=== PATIENT | female | born 1995 | race Caucasian/White ===

== ENCOUNTER 2019-07-29 09:45 | Emergency (ER) | payer BC ==
[2019-07-29 10:03] VITALS: BP 107/68
--- NOTE | 2019-07-29 10:17 | UC ---
Complaint Female HPI - HPI Summary HPI Summary: 23 y/o female presents to the urgent care c/o white vaginal discharge w/ a lot of itchiness for the past 2 days. pt also reports sore throat for the past week. Pain w/ swallowing is 4/10 w/o any fever, cough or URI symptoms. Pt states frequency and burning on urination developed yesterday. She has had Hx of PID in the past. Today she denies pelvic pain, lower back pain, flank pain, abdominal pain, SOB, chest pain, N/v/D, MARQUEZ or rash or vaginal bleeding. . Denies Hx of STD's. Pt is UTd w/ all vaccines for her age. Pt states pain on urination is 2/10 and has been drinking fluids. She has Minera IUD since 2017 w/o any menstrual periods since then. Pt has not taken any medication to alleviate symptoms. - History Of Current Complaint Chief Complaint: UCGeneralIllness Stated Complaint: PERSONAL Time Seen by Provider: 07/29/19 10:08 Hx Obtained From: Patient Hx Last Menstrual Period: iud ?: No - Mirena Onset/Duration: Gradual Onset, Lasting Days - 3 days vaginal discahrge, and 1 week of sore throat, Still Present, Worse Since - yesterday Timing: Constant Severity Initially: Mild Severity Currently: Mild Pain Intensity: 2 - sore throat Pain Scale Used: 0-10 Numeric Character: Burning Aggravating Factor(s): Urination Alleviating Factor(s): Nothing Associated Signs And Symptoms: Positive: Vaginal Discharge - itchy wite vaginal discharge. Negative: Fever, Back Pain, Nausea, Vomiting(# Of Episodes =), Genital Swelling - Risk Factors Ectopic Risk Factor: Negative Ovarian Torsion Risk Factor: Negative - Allergies/Home Medications Allergies/Adverse Reactions: Allergies Allergy/AdvReac Type Severity Reaction Status Date / Time No Known Allergies Allergy Verified 07/29/19 10:03 Home Medications: Home Medications Levonorgestrel (Iud) [Mirena IUD] 07/29/19 [History] PMH/Surg Hx/FS Hx/Imm Hx Previously Healthy: Yes - Pt denies PMHX Other History Of: Negative For: Anticoagulant Therapy - Surgical History Surgical History: None - Family History Known Family History: Positive: Hypertension, Diabetes - Social History Occupation: Student Lives: With Family Alcohol Use: None Substance Use Type: Marijuana Smoking Status (MU): Light Every Day Tobacco Smoker - Immunization History Most Recent Influenza Vaccination: 2013 Most Recent Pneumonia Vaccination: none Vaccination Up to Date: Yes Review of Systems All Other Systems Reviewed And Are Negative: Yes Constitutional: Positive: Negative Skin: Positive: Negative Eyes: Positive: Negative ENT: Positive: Sore Throat Respiratory: Positive: Negative Cardiovascular: Positive: Negative Gastrointestinal: Positive: Negative Genitourinary: Positive: Dysuria, Frequency, Urgency, Vaginal/Penile Itching, Vaginal/Penile Discharge - white Motor: Positive: Negative Neurovascular: Positive: Negative Musculoskeletal: Positive: Negative Neurological: Positive: Negative Psychological: Positive: Negative Is Patient Immunocompromised?: No Physical Exam - Summary Physical Exam Summary: Vital signs: reviewed General: well developed, well nourished female sitting in the examining table w/o any acute distress. Head: Normocephalic, no lesions. Eyes: PERRLA, EOM's full, conjunctiva clear, fundi grossly normal. Ears: EAC's clear, TM's normal. Nose: Mucosa normal, no obstruction. Throat: positive erythematous pharynx w/o any exudate, No B/l tonsillar enlargement or exudate, no lesions. Uvula in the midline Neck: Supple, no masses, no thyromegaly, no bruits. Chest: Lungs clear, no rales, no rhonchi, no wheezes. Heart: RR, no murmurs, no rubs, no gallops. Abdomen: Soft, no tenderness, no masses, BS normal. Pelvic: I was crossing gateman by nurse Namrata tobias. External genitalia within normal limits. There is no lesions there is no masses noted. Speculum exam: The vaginal morales are within normal limits w/ moderate white cottage cheese vaginal discharge, no lesions or rashes. The cervix is closed with string from the Minera in place, no lesions or masses. There is no CMT's, and no adnexal masses. Sample sent to Lab for G/C and Affirm panel. Rectal: No lesions, no hemorrhoids, Back: Normal curvature, no tenderness. Extremities: FROM, no deformities, no edema, no erythema. Neuro: Physiological, no localizing findings. Skin: Normal, no rashes, no lesions noted. Triage Information Reviewed: Yes Vital Signs: Initial Vital Signs Temp 98.4 F 07/29/19 10:00 Pulse 100 08/31/19 10:00 Resp 20 07/29/19 10:00 BP 107/68 07/29/19 10:00 Pulse Ox 99 07/29/19 10:00 Complaint Female Dx - Course Course Of Treatment: 23 y/o female presents to the urgent care c/o white vaginal discharge w/ a lot of itchiness for the past 2 days. pt also reports sore throat for the past week. Pain w/ swallowing is 4/10 w/o any fever, cough or URI symptoms. Pt states frequency and burning on urination developed yesterday. She has had Hx of PID in the past. Today she denies pelvic pain, lower back pain, flank pain, abdominal pain, SOB, chest pain, N/v/D, MARQUEZ or rash or vaginal bleeding. . Denies Hx of STD's. Pt is UTd w/ all vaccines for her age. Pt states pain on urination is 2/10 and has been drinking fluids. She has Minera IUD since 2017 w/o any menstrual periods since then. Pt has not taken any medication to alleviate symptoms. Hx obtained. Pt w/ pharyngitis on examination. Rapid strep ordered: negative. I was crossing gateman by Nurse Namrata tobias. Speculum exam: The vaginal morales are within normal limits w/moderate white cottage vaginal discharge, no lesions or rashes. The cervix is closed with strin from Minera in place, no erythema, no masses observed. There is no CMT's, and no adnexal masses. Sample sent to Lab for G/C , trichomonas and affirm panel. UA: + trace leukoesterase, trace blood. test:negative. Pt will be treated prophylactically w/ keflex PO and Pyridium for possible UTI. Also Tx yeast infection w/ Fluconazole PO as directed below. a Pt educated on STD's and protection. HIV ordered. pt will be notified of any abnormal result for further management. Urine sent for culture if any abnormality Pt will be notified for further treatment. Pt advised If symptoms do not improve to return to the urgent care or f/u with PCP. Pt understood and agreed. Left the clinic ambulating.D/C instructions explained. Pt understood and agreed with plan of care. - Differential Dx/Diagnosis Differential Diagnosis/HQI/PQRI: Cervicitis, Pelvic Inflammatory Disease, Renal Colic, Sexually Transmitted Disease, Ureteral Stone, Urinary Tract Infection Provider Diagnosis: Candidiasis of vagina, Screening for STD (sexually transmitted disease), UTI ( urinary tract infection), Pharyngitis Discharge ED - Sign-Out/Discharge Documenting (check all that apply): Patient Departure - d/c home All imaging exams completed and their final reports reviewed: No Studies - Discharge Plan Condition: Stable Disposition: HOME Prescriptions: Cephalexin CAP* [Keflex CAP*] 500 mg PO BID PC #14 cap Fluconazole 150 MG TAB* [Diflucan 150 MG TAB*] 150 mg PO ONCE #1 tablet Phenazopyridine TAB* [Pyridium 100 mg TAB*] 100 mg PO TID #6 tab Patient Education Materials: Urinary Tract Infection in Women (ED), Yeast Infection (ED) Referrals: [facility] [facility] [Outside] - 3 Days Additional Instructions: 1- Please take Keflex PO x 7 days. Pyridium 100 mg PO TID x 2 days to alleviate urinary symptoms. Increase increase fluid intake. drink cranberry juice. 2-Urine sent for culture if any abnormality, you will be notified for further treatment. 3- Take Fluconzole PO as directed to alleviate your yeast infection. Screening for STD's was sent to lab you will be notified of any abnormality 4-If symptoms do not improve please return to the urgent care or f/u with your PCP for further management. 5- Rapid strep was negative. Please take ibuprofen PO 600mg q6-8hrs prn after meals to alleviate symptoms. If not improvement please f/u w/ your PCP for further management. - Billing Disposition and Condition Condition: STABLE Disposition: Home
[2019-08-01 13:49] LABS: Chlamydia trachomatis NAA Negative (Negative); Neisseria gonorrhoeae (GC) NAA Negative (Negative)
== END 2019-07-29 11:44 | disposition home or self-care (01) ==
LOC: UCEAST 09:45
DX: B37.3 Candidiasis of vulva and vagina (principal); N39.0 Urinary tract infection, site not specified; J02.9 Acute pharyngitis, unspecified; F17.210 Nicotine dependence, cigarettes, uncomplicated; Z20.2 Contact with and (suspected) exposure to infections with a predominantly sexual mode of transmission
CPT/HCPCS: 81003; 84702; 87086; 87106; 87480; 87491; 87510; 87591; 87651; 87661; 99212; G0463

== ENCOUNTER 2019-10-22 13:52 | Emergency (ER) | payer SELFPAY ==
--- OUTSIDE RECORDS SUMMARY | 2019-10-22 14:02 | XMS REPORT | Continuity of Care Document ---
:1995 External Reference #:[id number] Author Name Yesi Chanel NP Address [address] [place] [address] Care Team Providers Name Role Phone Gaby Fong M.D. - Family Medicine Care Team Information Applications Support Lead Unavailable Problems Description No Information Available Social History Type Date Description Comments Sex Unknown Tobacco Use Start: Unknown Light tobacco smoker (10 about 1/3 pack of or fewer cigarettes/day) cigars per day ETOH Use Occasional twice per month, 2-3 drinks Tobacco Use Start: Unknown Light tobacco smoker (10 or fewer cigarettes/day) Smoking Status Reviewed: 08/24/19 Light tobacco smoker (10 or fewer cigarettes/day) Exercise Exercises sporadically active job Type/Frequency Guns in Home No Smoke Alarms Yes Smoke Alarms Carbon Monoxide Detector: Yes Allergies, Adverse Reactions, Alerts Description No Known Drug Allergies Medications Active Medications SIG Qnty Indications Ordering Date Provider Albuterol Sulfate take 1-2 puffs 8.500gm J20.9 Yesi Gauthier 08/24/2019 HFA inhaled every 4 KEILY Chanel 108(90Base) hours as needed mcg/Act Aerosol for shortness of breath Mirena (52 MG) Unknown 20mcg/24HR IUD B-12 Unknown Iron Unknown Immunizations Description No Information Available Vital Signs Date Vital Result Comment 08/24/2019 2:46pm BP Systolic 112 mmHg BP Diastolic 72 mmHg Heart Rate 68 /min Body Temperature 98.1 F Height 62 inches 5'2" Weight 122.38 lb BMI (Body Mass Index) 22.4 kg/m2 Results Description No Information Available Procedures Description No Information Available Medical Devices Description No Information Available Encounters Description No Information Available Assessments Date Code Description Provider 08/24/2019 J20.9 Acute bronchitis, unspecified Yesi Chanel NP 08/24/2019 R55 Syncope and collapse Yesi Chanel, KEILY 08/24/2019 R30.0 Dysuria Yesi Chanel, KEILY Plan of Treatment 08/24/2019 - Yesi Chanel, NPJ20.9 Acute bronchitis, unspecifiedNew Medication:Albuterol Sulfate HFA 108(90 Base) mcg/Act - take 1-2 puffs inhaled every 4 hours as needed for shortness of breathComments:It is normal to cough for 2-3 weeks. You should be re-evaluated at the office if your cough persistslonger or if you have a cough with fever, wheezing, or worsening pain.R55 Syncope and collapseNew Labs:CBC Electronic ([facility] New), Ordered: Comp Metabolic-ALL Lab Compani, Ordered: 08/24/19TSH ([facility]), Ordered: 08/24/19B12 ([facility]), Ordered: 08/24/19Iron/Tibc & Ferritin([facility]), Ordered: 08/24/19Comments:I will run labs. You work on regular nutrition and keeping well-hydrated.R30.0 DysuriaNew Labs:Ua - Non Micro ([facility]), Ordered: 08/24/19Culture Urine, Ordered: 08/24/19#GC/Chlam By Amplified Dna-Ua, Ordered: 08/24/19AllComments:1. Patient has been queried about patient's goals/preferences and functional/lifestyle goals at relevant visits. If relevant, describe: Has been discussed, noted above2. Treatment goals as explainedto the patient: see above3. Are there barriers to meeting treatment goals? Yes If Yes, please describe: Barriers include possible insurance limits, disease process, and difficulty with lifestyle changes4. Self -Management goals as described to the patient: Yes, see above As always, we strongly encourage a healthy diet and making physical activity a part of your every day life. If you have questions about how or where to start, please contact the office. Functional Status Description No Information Available Mental Status Description No Information Available Referrals Description No Information Available
[2019-10-22 14:06] VITALS: BP 110/73
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
[2019-10-22] MEDS ORDERED: Ketorolac *IM* INJ* 60 MG/2 ML VIAL IM ONE (14:17)
== END 2019-10-22 15:21 | disposition home or self-care (01) ==
LOC: UCEAST 13:52
DX: S16.1XXA Strain of muscle, fascia and tendon at neck level, initial encounter (principal); F17.290 Nicotine dependence, other tobacco product, uncomplicated; V49.49XA Driver injured in collision with other motor vehicles in traffic accident, initial encounter; Y92.9 Unspecified place or not applicable
CPT/HCPCS: 72050; 96372; 99212; G0463; J1885